=== PATIENT | male | born 1950 | race Caucasian/White ===

== ENCOUNTER 2019-01-05 20:49 | Inpatient (IN) | payer MEDICARE, OTHER ==
[2019-01-05] MEDS: morphine 4 MG/ML VIAL IV (21:32)
[2019-01-05] MEDS: ONDANSETRON 4 MG INJ IV (21:32)
[2019-01-05 21:36] LABS: ADD MAN DIFF? NO
[2019-01-05 21:38] LABS: BASOPHILS % 0.5 % (0.0-2.0); EOSINOPHILS # 0.3 10^3/ul (0.0-0.5); EOSINOPHILS % 3.3 % (0.0-7.0); HEMATOCRIT 46.2 % (42.0-52.0); HEMOGLOBIN 15.2 g/dl (14.0-18.0); LYMPHOCYTES # 1.8 10^3/ul (0.8-2.9); LYMPHOCYTES % 23.6 % (15.0-51.0); MEAN CORPUSCULAR HEMOGLOBIN 29.9 pg (29.0-33.0); MEAN CORPUSCULAR HGB CONC 32.9 g/dl (32.0-37.0); MEAN CORPUSCULAR VOLUME 90.8 fl (82.0-101.0); MEAN PLATELET VOLUME 10.8 fl (7.4-10.4); MONOCYTE # 0.9 10^3/ul (0.3-0.9); MONOCYTES % 11.6 % (0.0-11.0); NEUTROPHIL # 4.7 10^3/ul (1.6-7.5); NEUTROPHILS % 60.7 % (39.0-77.0); PLATELET COUNT 175 10^3/UL (140-415); RED BLOOD COUNT 5.09 10^6/ul (4.70-6.10); RED CELL DISTRIBUTION WIDTH 14.1 % (11.5-14.5)
[2019-01-05 21:38] LABS: WHITE BLOOD COUNT 7.8 10^3/ul (4.8-10.8)
[2019-01-05 21:48] LABS: ADD UMIC YES; UR AMORPHOUS CRYSTAL FEW /HPF (NONE SEEN); UR ASCORBIC ACID NEGATIVE (NEGATIVE); UR BACTERIA FEW /HPF (NONE SEEN); UR BILIRUBIN (Dip) NEGATIVE (NEGATIVE); UR BLOOD (Dip) 3+ mg/dL (NEGATIVE); UR CLARITY SLIGHTLY CLOUDY (CLEAR); UR COLOR YELLOW (YELLOW); UR GLUCOSE (Dip) 3+ mg/dL (NEGATIVE); UR KETONES (Dip) NEGATIVE (NEGATIVE); UR LEUKOCYTE ESTERASE (Dip) 1+ Leu/ul (NEGATIVE); UR NITRITE (Dip) NEGATIVE (NEGATIVE); UR RBC 122 /HPF (0-5); UR SQUAMOUS EPITHELIAL CELL FEW /HPF (FEW); UR TOTAL PROTEIN (Dip) NEGATIVE (NEGATIVE); UR UROBILINOGEN (Dip) NEGATIVE (NEGATIVE); UR WBC 11 /HPF (0-5)
[2019-01-05 21:55] LABS: ALANINE AMINOTRANSFERASE 29 IU/L (13-69); ALBUMIN 4.6 g/dl (3.3-4.9); ALBUMIN/GLOBULIN RATIO 1.48; ALKALINE PHOSPHATASE 54 IU/L (42-121); ANION GAP 13 (5-13); ASPARTATE AMINO TRANSFERASE 26 IU/L (15-46); BILIRUBIN,INDIRECT 0.4 mg/dl (0-1.1); BILIRUBIN,TOTAL 0.4 mg/dl (0.2-1.3); BLOOD UREA NITROGEN 26 mg/dl (7-20); CALCIUM 9.4 mg/dl (8.4-10.2); CARBON DIOXIDE 28 mmol/L (21-31); CHLORIDE 103 mmol/L (97-110); CREATININE 1.51 mg/dl (0.61-1.24); Estimated GFR 46 mL/min (>60); GLUCOSE 117 mg/dl (70-220); LIPASE 84 U/L (23-300); SODIUM 144 mmol/L (135-144); TOTAL PROTEIN 7.7 g/dl (6.1-8.1)
[2019-01-05 21:57] LABS: INR 0.98; PROTIME 13.1 Sec (11.9-14.9)
[2019-01-05 22:06] LABS: TROPONIN-I < 0.012 ng/ml (0.000-0.120)
[2019-01-05] MEDS: NITROGLYCERIN 2% 1 GM OINT PKT TD (23:04)
[2019-01-05] MEDS: ASPIRIN 81 MG TAB PO (23:04)
[2019-01-05] MEDS ORDERED: NITROGLYCERIN (SL) 0.4 MG TAB SL (23:30)
[2019-01-05] MEDS ORDERED: ACETAMINOPHEN 325 MG TAB PO (23:30)
[2019-01-05] MEDS ORDERED: ONDANSETRON 4 MG INJ IV (23:30)
[2019-01-06] MEDS ORDERED: NACL 0.9% 3 ML SYG IV (00:30)
[2019-01-06] MEDS ORDERED: ALBUTEROL/IPRATROPIUM (NEB) 3 ML AMP HHN (00:30)
[2019-01-06] MEDS ORDERED: NITROGLYCERIN (SL) 0.4 MG TAB SL (00:30)
[2019-01-06] MEDS ORDERED: ONDANSETRON 4 MG INJ IV (00:30)
[2019-01-06] MEDS: hydrALAzine 20 MG INJ IV (01:07)
[2019-01-06] MEDS: CEFTRIAXONE 1 GM/50 ML (PMX) 50 ML IVPB (01:14)
[2019-01-06] MEDS: HYDROCODONE/APAP (5/325) TAB PO ×2 (02:31→18:02)
[2019-01-06] MEDS: SOD CHLORIDE 0.9% 1,000 ML IV ×4 (03:26→21:09)
[2019-01-06 06:08] LABS: ADD MAN DIFF? NO
[2019-01-06 06:18] LABS: BASOPHILS % 0.6 % (0.0-2.0); EOSINOPHILS # 0.2 10^3/ul (0.0-0.5); EOSINOPHILS % 3.6 % (0.0-7.0); HEMOGLOBIN 14.4 g/dl (14.0-18.0); LYMPHOCYTES # 1.8 10^3/ul (0.8-2.9); LYMPHOCYTES % 28.1 % (15.0-51.0); MEAN CORPUSCULAR HEMOGLOBIN 29.5 pg (29.0-33.0); MEAN CORPUSCULAR VOLUME 92.2 fl (82.0-101.0); MONOCYTE # 0.6 10^3/ul (0.3-0.9); MONOCYTES % 10.1 % (0.0-11.0); NEUTROPHIL # 3.7 10^3/ul (1.6-7.5); NEUTROPHILS % 57.4 % (39.0-77.0); PLATELET COUNT 159 10^3/UL (140-415); RED BLOOD COUNT 4.88 10^6/ul (4.70-6.10); RED CELL DISTRIBUTION WIDTH 14.3 % (11.5-14.5)
[2019-01-06 06:18] LABS: WHITE BLOOD COUNT 6.4 10^3/ul (4.8-10.8)
[2019-01-06] MEDS: ACETAMINOPHEN 325 MG TAB PO ×2 (06:32→13:04)
[2019-01-06 06:41] LABS: ALANINE AMINOTRANSFERASE 32 IU/L (13-69); ALBUMIN 3.9 g/dl (3.3-4.9); ALBUMIN/GLOBULIN RATIO 1.39; ALKALINE PHOSPHATASE 42 IU/L (42-121); ANION GAP 9 (5-13); ASPARTATE AMINO TRANSFERASE 20 IU/L (15-46); BILIRUBIN,INDIRECT 0.5 mg/dl (0-1.1); BILIRUBIN,TOTAL 0.5 mg/dl (0.2-1.3); BLOOD UREA NITROGEN 23 mg/dl (7-20); CALCIUM 9.2 mg/dl (8.4-10.2); CARBON DIOXIDE 33 mmol/L (21-31); CHLORIDE 102 mmol/L (97-110); CHOLESTEROL 146 mg/dl (100-200); CREATININE 1.25 mg/dl (0.61-1.24); Estimated GFR 57 mL/min (>60); GLUCOSE 112 mg/dl (70-220); HDL CHOLESTEROL 36 mg/dl (31-75); LDL CHOLESTEROL,CALCULATED 72 mg/dl; MAGNESIUM 2.2 mg/dl (1.7-2.5); POTASSIUM 3.9 mmol/L (3.5-5.1); SODIUM 144 mmol/L (135-144); TOTAL PROTEIN 6.7 g/dl (6.1-8.1); TRIGLYCERIDES 190 mg/dl (0-149)
[2019-01-06 06:51] LABS: CK-MB 0.57 ng/ml (0.0-2.4); TROPONIN-I < 0.012 ng/ml (0.000-0.120)
[2019-01-06 06:57] LABS: CREATINE KINASE 59 IU/L (23-200)
[2019-01-06 06:59] LABS: HEMOGLOBIN A1C 6.5 % (0-5.9)
[2019-01-06] MEDS: INSULIN ASPART [NOVOLOG] 3 ML PEN SC ×4 (07:56→21:00)
[2019-01-06] MEDS: ASPIRIN 81 MG TAB PO (08:17)
[2019-01-06] MEDS: ISOSORBIDE MONONITRATE(SR)30 MG TAB PO (08:18)
[2019-01-06] MEDS: CLOPIDOGREL 75 MG TAB PO (08:18)
[2019-01-06] MEDS: HEPARIN 5,000 UNIT/1 ML VIAL SC ×2 (08:25→21:17)
[2019-01-06] MEDS ORDERED: ASPIRIN 81 MG TAB PO (09:00)
[2019-01-06] MEDS: LEVOFLOXACIN 750MG/D5W (PMX) 150 ML IVPB (11:41)
[2019-01-06 12:01] LABS: CREATINE KINASE 57 IU/L (23-200)
[2019-01-06 12:11] LABS: CK-MB 0.57 ng/ml (0.0-2.4)
[2019-01-06 12:15] LABS: TROPONIN-I < 0.012 ng/ml (0.000-0.120)
[2019-01-06] MEDS: ATORVASTATIN 80 MG TAB PO (21:10)
[2019-01-07 05:09] LABS: ADD MAN DIFF? NO
[2019-01-07 05:13] LABS: WHITE BLOOD COUNT 5.7 10^3/ul (4.8-10.8)
[2019-01-07 05:13] LABS: BASOPHILS % 0.4 % (0.0-2.0); EOSINOPHILS # 0.2 10^3/ul (0.0-0.5); EOSINOPHILS % 3.9 % (0.0-7.0); HEMATOCRIT 41.7 % (42.0-52.0); HEMOGLOBIN 13.4 g/dl (14.0-18.0); LYMPHOCYTES # 1.6 10^3/ul (0.8-2.9); LYMPHOCYTES % 27.6 % (15.0-51.0); MEAN CORPUSCULAR HEMOGLOBIN 29.8 pg (29.0-33.0); MEAN CORPUSCULAR HGB CONC 32.1 g/dl (32.0-37.0); MEAN CORPUSCULAR VOLUME 92.9 fl (82.0-101.0); MEAN PLATELET VOLUME 10.9 fl (7.4-10.4); MONOCYTE # 0.6 10^3/ul (0.3-0.9); MONOCYTES % 10.4 % (0.0-11.0); NEUTROPHIL # 3.3 10^3/ul (1.6-7.5); NEUTROPHILS % 57.3 % (39.0-77.0); PLATELET COUNT 149 10^3/UL (140-415); RED BLOOD COUNT 4.49 10^6/ul (4.70-6.10); RED CELL DISTRIBUTION WIDTH 14.2 % (11.5-14.5)
[2019-01-07 06:06] LABS: ANION GAP 8 (5-13); CALCIUM 8.9 mg/dl (8.4-10.2); CARBON DIOXIDE 29 mmol/L (21-31); CHLORIDE 105 mmol/L (97-110); Estimated GFR > 60 mL/min (>60); GLUCOSE 111 mg/dl (70-220); POTASSIUM 3.7 mmol/L (3.5-5.1); SODIUM 142 mmol/L (135-144)
[2019-01-07 06:20] LABS: TROPONIN-I < 0.012 ng/ml (0.000-0.120)
[2019-01-07 06:34] LABS: CHOLESTEROL 140 mg/dl (100-200)
[2019-01-07 06:34] LABS: CHOL/HDL RATIO 4.8 RATIO; HDL CHOLESTEROL 29 mg/dl (31-75); LDL CHOLESTEROL,CALCULATED 59 mg/dl; TRIGLYCERIDES 260 mg/dl (0-149)
[2019-01-07 06:51] LABS: BLOOD UREA NITROGEN 18 mg/dl (7-20); CREATININE 1.08 mg/dl (0.61-1.24)
[2019-01-07] MEDS: ASPIRIN 81 MG TAB PO (08:46)
[2019-01-07] MEDS: CLOPIDOGREL 75 MG TAB PO (08:46)
[2019-01-07] MEDS: ISOSORBIDE MONONITRATE(SR)30 MG TAB PO (08:47)
[2019-01-07] MEDS: AMLODIPINE 2.5 MG TAB PO (08:47)
[2019-01-07] MEDS: INSULIN ASPART [NOVOLOG] 3 ML PEN SC ×4 (08:58→21:00)
[2019-01-07] MEDS: HEPARIN 5,000 UNIT/1 ML VIAL SC ×2 (08:58→20:39)
[2019-01-07] MEDS ORDERED: CEFTRIAXONE 1 GM/50 ML (PMX) 50 ML IVPB (09:00)
[2019-01-07] MEDS: ACETAMINOPHEN 325 MG TAB PO ×2 (13:37→20:34)
[2019-01-07] MEDS: FLUCONAZOLE 100 MG TAB PO (13:59)
[2019-01-07] MEDS: LEVOFLOXACIN 750MG/D5W (PMX) 150 ML IVPB (13:59)
[2019-01-07] MEDS: ATORVASTATIN 80 MG TAB PO (20:34)
[2019-01-08 05:39] LABS: ADD MAN DIFF? NO
[2019-01-08 05:42] LABS: WHITE BLOOD COUNT 4.8 10^3/ul (4.8-10.8)
[2019-01-08 05:42] LABS: BASOPHILS % 0.6 % (0.0-2.0); EOSINOPHILS # 0.3 10^3/ul (0.0-0.5); EOSINOPHILS % 5.8 % (0.0-7.0); HEMATOCRIT 42.2 % (42.0-52.0); HEMOGLOBIN 13.9 g/dl (14.0-18.0); LYMPHOCYTES # 1.7 10^3/ul (0.8-2.9); LYMPHOCYTES % 34.9 % (15.0-51.0); MEAN CORPUSCULAR HEMOGLOBIN 30.1 pg (29.0-33.0); MEAN CORPUSCULAR HGB CONC 32.9 g/dl (32.0-37.0); MEAN CORPUSCULAR VOLUME 91.3 fl (82.0-101.0); MONOCYTE # 0.5 10^3/ul (0.3-0.9); MONOCYTES % 10.7 % (0.0-11.0); NEUTROPHIL # 2.3 10^3/ul (1.6-7.5); NEUTROPHILS % 47.8 % (39.0-77.0); PLATELET COUNT 145 10^3/UL (140-415); RED BLOOD COUNT 4.62 10^6/ul (4.70-6.10); RED CELL DISTRIBUTION WIDTH 13.9 % (11.5-14.5)
[2019-01-08 06:20] LABS: ANION GAP 11 (5-13); BLOOD UREA NITROGEN 19 mg/dl (7-20); CALCIUM 9.5 mg/dl (8.4-10.2); CARBON DIOXIDE 30 mmol/L (21-31); CHLORIDE 103 mmol/L (97-110); CREATININE 1.14 mg/dl (0.61-1.24); Estimated GFR > 60 mL/min (>60); GLUCOSE 109 mg/dl (70-220); MAGNESIUM 1.8 mg/dl (1.7-2.5); PHOSPHORUS 4.2 mg/dl (2.5-4.9); POTASSIUM 4.1 mmol/L (3.5-5.1); SODIUM 144 mmol/L (135-144)
[2019-01-08] MEDS: INSULIN ASPART [NOVOLOG] 3 ML PEN SC (07:50)
[2019-01-08] MEDS: hydrALAzine 20 MG INJ IV (08:01)
[2019-01-08] MEDS: FLUCONAZOLE 100 MG TAB PO (08:37)
[2019-01-08] MEDS: CLOPIDOGREL 75 MG TAB PO (08:38)
[2019-01-08] MEDS: ASPIRIN 81 MG TAB PO (08:38)
[2019-01-08] MEDS: AMLODIPINE 2.5 MG TAB PO (08:38)
[2019-01-08] MEDS ORDERED: NIFEdipine (XL) 30 MG TAB PO (21:00)
== END 2019-01-08 13:08 | disposition home or self-care (01) | DRG 728 ==
LOC: MS1 01-07 16:56 → 6WM 23:05 → E/R 20:49
DX: B37.49 Other urogenital candidiasis (principal); I25.10 Atherosclerotic heart disease of native coronary artery without angina pectoris; I10 Essential (primary) hypertension; I25.82 Chronic total occlusion of coronary artery; E11.9 Type 2 diabetes mellitus without complications; N19 Unspecified kidney failure; E78.5 Hyperlipidemia, unspecified; I25.2 Old myocardial infarction; Z79.82 Long term (current) use of aspirin; Z85.46 Personal history of malignant neoplasm of prostate; Z87.891 Personal history of nicotine dependence; Z95.5 Presence of coronary angioplasty implant and graft
CPT/HCPCS: 36415; 71046; 74176; 80048; 80053; 80061; 81001; 82550; 82553; 82962; 83036; 83690; 83735; 84100; 84484; 85025; 85610; 85730; 87086; 93005; 93306; 96374; 96375; 99285-25; G0378